=== PATIENT | male | born 1945 | race Caucasian/White ===

== ENCOUNTER 2016-11-24 11:14 | Emergency (ER) | payer MEDICARE ==
[~2016-11-24] VITALS: Ht 175.3 cm; Wt 68.2 kg
[2016-11-24 11:49] VITALS: BP 160/101; PULSE 96; RESP 16; TEMP 98; O2SAT 96
--- NOTE | 2016-11-24 12:25 | RADHPO ---
EXAM DATE/TIME: 11/24/2016 12:03 [place] COMPARISON: No previous studies available for comparison. INDICATIONS : Right hip pain post fall. MEDICAL HISTORY : None. SURGICAL HISTORY : None. ENCOUNTER: Initial ACUITY: 2 days PAIN SCORE: 10/10 LOCATION: Right hip FINDINGS: Multiple views of the pelvis and right hip show no fracture or dislocation. Osteopenia noted. Advance d osteoarthritis involving both hip joints. This is more pronounced on the right. There is subchondra l geode formation and femoral head flattening. Soft tissues are unremarkable. CONCLUSION: Advanced osteoarthritis of the hips bilaterally. No fracture. Yefri Montilla Jr., MD on November 24, 2016 at 12:17 Board Certified Radiologist. This report was verified electronically.
[2016-11-24] MEDS ORDERED: NAPR500T PO (13:19)
[2016-11-24] MEDS ORDERED: TRAM50TA PO (13:19)
[2016-11-24] MEDS ORDERED: CYCL1TAB29 PO (13:19)
--- NOTE | 2016-11-24 13:19 | PD ---
HPI Chief Complaint: Fall Time Seen by Provider: 13:14 Travel History International Travel<30 days: No Contact w/Intl Traveler<30days: No Traveled to known affect area: No History of Present Illness HPI Patient is a 71-year-old male presenting to emergency for evaluation of right hip pain. Patient states he fell yesterday at home, landing on his right hip. He denies any head injury, loss of consciousness, chest pain, abdominal pain, neck pain, back pain. He states the pain in his hip is an 8 out of 10 and describes aching and sore. Patient is ambulatory but walking exacerbates the pain. PFSH Past Medical History Medical History: Denies Significant Hx Immunizations Current: Yes Tetanus Vaccination: > 5 Years Influenza Vaccination: Yes Past Surgical History Tonsillectomy: Yes Social History Alcohol Use: No Tobacco Use: Yes Substance Use: No Allergies-Medications (Allergen,Severity, Reaction): Coded Allergies: No Known Allergies (Unverified , 11/24/16) Reported Meds & Prescriptions Reported Meds & Active Scripts Active Tramadol (Tramadol HCl) 50 Mg Tab 50 Mg PO Q6H PRN Flexeril (Cyclobenzaprine HCl) 10 Mg Tab 10 Mg PO TID PRN 10 Days Naproxen 500 Mg Tab 500 Mg PO BID PRN Review of Systems Except as stated in HPI: all other systems reviewed are Neg Musculoskeletal: Positive: Myalgias, Arthralgias, Limited ROM, No: Edema Skin: No Change in Pigmentation Physical Exam Narrative GENERAL: Well-nourished, well-developed patient. SKIN: Warm and dry. HEAD: Normocephalic. EYES: No scleral icterus. No injection or drainage. NECK: Supple, trachea midline. No JVD or lymphadenopathy. CARDIOVASCULAR: Regular rate and rhythm without murmurs, gallops, or rubs. RESPIRATORY: Breath sounds equal bilaterally. No accessory muscle use. GASTROINTESTINAL: Abdomen soft, non-tender, nondistended. MUSCULOSKELETAL: No cyanosis, or edema. Tenderness to palpation on lateral aspect of right hip. 5/5 muscle strength in bilateral lower extremities. Right leg lift elicits pain in the hip. Patient is neurovascularly intact. No spinal tenderness noted. BACK: Nontender without obvious deformity. No CVA tenderness. Data Data Last Documented VS Vital Signs Date Time Temp Pulse Resp B/P Pulse Ox O2 Delivery O2 Flow Rate FiO2 11/24/16 11:49 98.0 96 16 160/101 96 Orders Hip, Uni(Ap&Lat) W Ap Pelvis (11/24/16 ) MDM Medical Decision Making Medical Screen Exam Complete: Yes Emergency Medical Condition: Yes Interpretation(s) Vital Signs Date Time Temp Pulse Resp B/P Pulse Ox O2 Delivery O2 Flow Rate FiO2 11/24/16 11:49 98.0 96 16 160/101 96 Differential Diagnosis Fracture versus sprain versus strain versus contusion versus other Narrative Course Patient is a 71-year-old male presenting to the emergency department evaluation of right hip pain after sustaining a mechanical fall yesterday at home. Denies any other complaints at this time. He is neurologically and neurovascularly intact. Imaging of the right hip is negative for acute fracture or dislocation. It does show significant arthritis. Patient is encouraged to continue range of motion exercises, alternate heat and ice the affected area, take medications as directed. He was encouraged follow- up with her primary doctor or return to emergency department for any new or worsening symptoms. Patient verbalizes understanding of instructions. Patient is stable for discharge. The pressure was elevated emergency department. Patient was encouraged to follow-up with primary doctor or the [facility]. BP was likely elevated secondary to pain. Diagnosis Primary Impression: Fall Qualified Code: W19.XXXA - Fall, initial encounter Additional Impression: Right hip pain Referrals: [facility] Primary Care Physician Patient Instructions: General Instructions, Hip Contusion (ED), Hip Pain (ED), Osteoarthritis (ED) Additional Instructions: Follow-up with your primary doctor or at the [facility] Take medications as directed Alternate heat and ice to the affected area, continue range of motion exercises , avoid bed rest Return to emergency department for any new or worsening symptoms Your blood pressure was elevated in the emergency department today. Please follow up at the community clinic or with a primary doctor for further evaluation and management. Additionally he can monitor her blood pressure at local pharmacies or obtain a home monitor. Med/Other Pt SpecificInfo: Prescription(s) given Scripts Tramadol 50 Mg Tab50 Mg PO Q6H PRN (PAIN) #10 TAB Ref 0 Prov:Robert Albright MD 11/24/16 Cyclobenzaprine (Flexeril)10 Mg Tab10 Mg PO TID PRN (MUSCLE SPASM) 10 Days Ref 0 Prov:Nabila Torres 11/24/16 Naproxen 500 Mg Krh275 Mg PO BID PRN (PAIN SCALE 1 TO 10) #60 TAB Ref 0 Prov:Nabila Torres 11/24/16 Disposition: 01 DISCHARGE HOME Condition: Stable Nabila Torres Nov 24, 2016 13:19
== END 2016-11-24 13:38 | disposition home or self-care (01) ==
LOC: PHED 11:14 → PHEFT 13:38
DX: M25.551 Pain in right hip (principal); W19.XXXA Unspecified fall, initial encounter; Y92.009 Unspecified place in unspecified non-institutional (private) residence as the place of occurrence of the external cause
CPT/HCPCS: 73502; 99283